=== PATIENT | male | born 1955 | race Caucasian/White ===

== ENCOUNTER → 2019-11-27 | Outpatient (CLI) | payer OTHER ==
--- NOTE | 2019-11-27 17:00 | RAD ---
EXAM DESCRIPTION: Knee,Right Complete CLINICAL HISTORY: 64 years, Male, OSTEOARTHRITIS OF THE RIGHT KNEE COMPARISON: None TECHNIQUE: Four x-ray views of the right knee standing FINDINGS: No fracture or dislocation. Bones appear mildly osteopenic with prominent trabecular pattern. Mildly narrowed appearance of medial and lateral compartments on frontal view. Standing 45 degree flexion shows mild spurring of the tibial spines and at the intercondylar notch. Tibial plateau appears intact. Mild surface irregularity of the medial femoral condyle. Lateral view shows normal position of the patella. Mild posterior patellar spurring with narrowed appearance of patellofemoral joint. No suprapatellar knee joint effusion. Normal contour of quadriceps and patellar tendons. No abnormal patellar tilt or subluxation on patellar sunrise view. Mild posterolateral patellar spurring. Mild edema along the medial aspect of the patellofemoral joint. IMPRESSION: Mild degenerative changes as described. Electronically signed by: Raman Viera MD 11/27/2019 4:59 PM CDT
== END ==
LOC: YCFC.O 10:52
PROVIDERS: ATTEND Family Medicine
DX: M17.11 Unilateral primary osteoarthritis, right knee (principal); E78.5 Hyperlipidemia, unspecified; R35.1 Nocturia; Z12.5 Encounter for screening for malignant neoplasm of prostate